=== PATIENT | male | born 1995 | race African-American/Black ===

== ENCOUNTER 2018-11-26 14:22 | Emergency (ER) | payer MEDICAID ==
[~2018-11-26] VITALS: Ht 180.3 cm; Wt 82.0 kg
[2018-11-26] MEDS ORDERED: KETOROLAC 60MG/2ML VIAL IM ONE (15:45)
[2018-11-26 17:27] VITALS: BP 137/68
== END 2018-11-26 18:03 | disposition home or self-care (01) ==
LOC: ER 14:22
DX: S13.4XXA Sprain of ligaments of cervical spine, initial encounter (principal); S20.212A Contusion of left front wall of thorax, initial encounter; S70.12XA Contusion of left thigh, initial encounter; V49.49XA Driver injured in collision with other motor vehicles in traffic accident, initial encounter; Y93.89 Activity, other specified; Y92.410 Unspecified street and highway as the place of occurrence of the external cause
CPT/HCPCS: 71101; 72040; 96372; 99283; J1885

== ENCOUNTER 2024-02-14 11:53 | Emergency (ER) | payer MEDICAID ==
[2024-02-14 12:07] VITALS: PULSE 66; RESP 16; O2SAT 99
== END 2024-02-14 12:59 | disposition left against medical advice (07) ==
LOC: ER 11:53
DX: R11.2 Nausea with vomiting, unspecified (principal); Z53.21 Procedure and treatment not carried out due to patient leaving prior to being seen by health care provider